=== PATIENT | female | born 1960 | race African-American/Black ===

== ENCOUNTER 2019-02-28 20:38 | Emergency (ER) | payer OTHER ==
[~2019-02-28] VITALS: Ht 162.6 cm; Wt 73.0 kg
[2019-02-28] MEDS ORDERED: KETOROLAC 60MG/2ML VIAL IM ONE (22:30)
[2019-02-28] MEDS ORDERED: CYCLOBENZAPRINE 10MG TABLET PO ONE (22:30)
[2019-02-28 23:25] VITALS: BP 122/71
== END 2019-02-28 23:25 | disposition home or self-care (01) ==
LOC: ER 20:38
DX: M54.41 Lumbago with sciatica, right side (principal)
CPT/HCPCS: 96372; 99283; J1885

== ENCOUNTER 2021-10-05 17:11 | Emergency (ER) | payer OTHER ==
[~2021-10-05] VITALS: Ht 160 cm; Wt 75.0 kg
[2021-10-05] MEDS ORDERED: IBUPROFEN 400MG TABLET PO ONE (18:30)
[2021-10-05] MEDS ORDERED: ACETAMINOPHEN 325MG TABLET PO ONE (18:30)
[2021-10-05 20:24] VITALS: BP 133/78
[2021-10-05] MEDS ORDERED: IBUP-2028 MT (22:42)
[2021-10-05] MEDS ORDERED: TOPUD PO (22:42)
== END 2021-10-05 22:48 | disposition home or self-care (01) ==
LOC: ER 17:11
DX: S92.351A Displaced fracture of fifth metatarsal bone, right foot, initial encounter for closed fracture (principal); W10.8XXA Fall (on) (from) other stairs and steps, initial encounter; Y93.89 Activity, other specified; Y92.89 Other specified places as the place of occurrence of the external cause; R03.0 Elevated blood-pressure reading, without diagnosis of hypertension
CPT/HCPCS: 29515; 73610; 73630; 99284